=== PATIENT | male | born 1975 ===

== ENCOUNTER 2021-05-31 06:38 | Day surgery (SDC) | payer OTHER ==
[~2021-05-31 06:38] MED LIST: PERCOCET 5/3251 TAB PO; RECTICARE30 GM TP
== END 2021-05-31 11:10 | disposition home or self-care (01) ==
LOC: AMB-ENDOS 06:38
PROVIDERS: ATTEND Surgery
DX: D12.3 Benign neoplasm of transverse colon (principal); D12.4 Benign neoplasm of descending colon; D12.5 Benign neoplasm of sigmoid colon; D12.8 Benign neoplasm of rectum; Z20.822 Contact with and (suspected) exposure to COVID-19